=== PATIENT | female | born 1970 ===

== ENCOUNTER 2021-04-22 14:45 | Emergency (ER) | payer SELFPAY ==
[2021-04-22 19:18] VITALS: BP 138/96
--- NOTE | 2021-04-22 19:19 | Emergency Department Report ---
ED General Adult HPI - General Stated complaint: RASH Time Seen by Provider: 04/22/21 19:15 - History of Present Illness Initial comments: Patient 50-year-old -[place] female who presents for itching all over x3 days. Is been no fever, chills, no shortness of breath no wheezing, no stridor. There is been no nausea no vomiting. Symptoms are exacerbated by it scratch cycle. Symptoms are relieved by it scratch cycle. Last exacerbation this a.m. Patient rates symptoms at 4/10. Patient has not taken Benadryl or other medications [id number]. There are no open sores lesions or history of other skin conditions. Patient denies other medical history. - Related Data Previous Rx's Medication Instructions Recorded Last Taken Type Famotidine [Pepcid] 20 mg PO BID #15 tablet 04/22/21 Unknown Rx Prednisone [predniSONE 10 mg 10 mg PO .TAPER #1 tab.ds.pk 04/22/21 Unknown Rx (6-Day Pack, 21 Tabs)] diphenhydrAMINE [Benadryl CAP] 25 mg PO Q8HR PRN #30 capsule 04/22/21 Unknown Rx ED Review of Systems ROS: Stated complaint: RASH Other details as noted in HPI Constitutional: denies: chills, fever Eyes: denies: eye pain, eye discharge, vision change ENT: denies: ear pain, throat pain Respiratory: denies: cough, shortness of breath, wheezing Cardiovascular: denies: chest pain, palpitations Endocrine: no symptoms reported Gastrointestinal: denies: abdominal pain, nausea, vomiting, diarrhea Genitourinary: denies: urgency, dysuria, discharge Musculoskeletal: denies: back pain, joint swelling, arthralgia Skin: other (itching ) Neurological: denies: headache, weakness, paresthesias Psychiatric: denies: anxiety, depression Hematological/Lymphatic: denies: easy bleeding, easy bruising ED Past Medical Hx - Medications Home Medications: Home Medications Medication Instructions Recorded Confirmed Last Taken Type Famotidine [Pepcid] 20 mg PO BID #15 tablet 04/22/21 Unknown Rx Prednisone [predniSONE 10 mg 10 mg PO .TAPER #1 tab.ds.pk 04/22/21 Unknown Rx (6-Day Pack, 21 Tabs)] diphenhydrAMINE [Benadryl CAP] 25 mg PO Q8HR PRN #30 capsule 04/22/21 Unknown Rx ED Physical Exam - General General appearance: alert, in no apparent distress - Head Head exam: Present: atraumatic, normocephalic - Eye Eye exam: Present: normal appearance, EOMI Pupils: Present: normal accommodation - ENT ENT exam: Present: normal exam, mucous membranes dry - Expanded ENT Exam Expanded Throat exam: Positive: other (uvula midline no wheezing ,no stridor no swelling no erythema, air way is patent ). Negative: tonsillar erythema, tonsillomegaly, tonsillar exudate, R peritonsillar mass, L peritonsillar mass - Neck Neck exam: Present: normal inspection, full ROM. Absent: tenderness, lymphadenopathy - Respiratory Respiratory exam: Present: normal lung sounds bilaterally. Absent: respiratory distress, wheezes, rales, rhonchi, stridor, chest wall tenderness - Cardiovascular Cardiovascular Exam: Present: regular rate, normal rhythm, normal heart sounds. Absent: systolic murmur, diastolic murmur, rubs, gallop - GI/Abdominal GI/Abdominal exam: Present: soft, normal bowel sounds. Absent: distended, tenderness, bruit, hernia - Rectal Rectal exam: Present: deferred - Extremities Exam Extremities exam: Present: normal inspection - Back Exam Back exam: Present: normal inspection - Neurological Exam Neurological exam: Present: alert, oriented X3, CN II-XII intact, normal gait - Psychiatric Psychiatric exam: Present: normal affect, normal mood - Skin Skin exam: Present: warm, dry, intact, normal color, urticaria. Absent: cyanosis, erythema, abrasion, ecchymosis ED Medical Decision Making - Medical Decision Making There are no lesions, open sores, or weeping, there is no fever. Skin is dry warm and intact. Mild abrasion left upper arm. This is likely allergic dermatitis. Plan [id number] Benadryl, Pepcid, prednisone Dosepak. Patient will be DC'd home in stable condition at this time. Patient is currently alert, oriented x3, ambulatory, respirations are even nonlabored lung sounds are clear throughout. Patient with no acute distress Critical care attestation.: If time is entered above; I have spent that time in minutes in the direct care of this critically ill patient, excluding procedure time. ED Disposition Clinical Impression: Allergic dermatitis Disposition: DC-01 TO HOME OR SELFCARE Is pt being admited?: No Does the pt Need Aspirin: No Condition: Stable Instructions: Contact Dermatitis, [id number] Prescriptions: diphenhydrAMINE [Benadryl CAP] 25 mg PO Q8HR PRN #30 capsule PRN Reason: allergies Famotidine [Pepcid] 20 mg PO BID #15 tablet Prednisone [predniSONE 10 mg (6-Day Pack, 21 Tabs)] 10 mg PO .TAPER #1 tab.ds.pk Referrals: [facility] [Provider Group] - 3-5 Days Forms: Work/School Release Form(ED) Time of Disposition: 19:22
== END 2021-04-22 19:46 | disposition home or self-care (01) ==
LOC: ED 14:45
DX: L23.9 Allergic contact dermatitis, unspecified cause (principal); Z79.899 Other long term (current) drug therapy; Z88.6 Allergy status to analgesic agent
CPT/HCPCS: 99281